=== PATIENT | female | born 1960 | race Caucasian/White ===

== ENCOUNTER 2021-09-23 13:53 | Outpatient (CLI) | payer OTHER, SELFPAY ==
[2021-09-23 16:10] LABS: Chloride* 103 mmol/L (96-114); Potassium* 4.5 mmol/L (3.6-5.1); Sodium* 138 mmol/L (135-149)
[2021-09-23 16:12] LABS: Creatinine* 0.9 mg/dL (0.5-1.5); Estimated Glomerular Filt Rate 73 ml/min
[2021-09-23 16:13] LABS: Blood Urea Nitrogen* 19 mg/dL (7-30); Calcium* 9.5 mg/dL (8.4-10.6); Carbon Dioxide* 28 mmol/L (20-32); Glucose* 103 mg/dL (60-115)
== END 2021-09-23 13:54 | disposition home or self-care (01) ==
LOC: NFLDREF 13:54
PROVIDERS: Nurse Practitioner Family; PCP Internal Medicine; Visit Provider Internal Medicine
DX: Z01.818 Encounter for other preprocedural examination (principal)
CPT/HCPCS: 80048

== ENCOUNTER 2021-09-24 06:57 | Outpatient (CLI) | payer OTHER, SELFPAY ==
--- NOTE | 2021-09-24 08:42 | W.ANESCHARGE ---
Anesthesia Charges Start Date/Time Anesthesia Start Date: 09/24/21 Anesthesia Start Time: 07:56 Stop Date/Time Anesthesia Stop Date: 09/24/21 Anesthesia Stop Time: 08:37 Summary Emergency: No
--- NOTE | 2021-09-24 09:30 | W.ANESCHARGE ---
Anesthesia Charges Start Date/Time Anesthesia Start Date: 09/24/21 Anesthesia Start Time: 07:56 Stop Date/Time Anesthesia Stop Date: 09/24/21 Anesthesia Stop Time: 08:37 Summary Emergency: No
== END 2021-09-24 06:58 | disposition home or self-care (01) ==
LOC: OP CLINIC 06:58
PROVIDERS: PCP Internal Medicine; Visit Provider Surgery
DX: Z12.11 Encounter for screening for malignant neoplasm of colon (principal); K63.5 Polyp of colon; K64.4 Residual hemorrhoidal skin tags; K57.30 Diverticulosis of large intestine without perforation or abscess without bleeding; D12.0 Benign neoplasm of cecum; Z86.010 Personal history of colon polyps
CPT/HCPCS: 00811; 00813; 45380; 45385; 88305; J2704

== ENCOUNTER 2022-11-04 19:02 | Outpatient (CLI) | payer OTHER, SELFPAY ==
--- NOTE | 2022-11-04 19:00 | CRLHL7_ITS ---
For Patients: As a result of the Century Cures Act, medical imaging exams and procedure reports are released immediately into your electronic medical record. You may view this report before your referring provider. If you have questions, please contact your health care provider. BILATERAL SCREENING MAMMOGRAM WITH COMPUTER-AIDED DETECTION AND TOMOSYNTHESIS TECHNIQUE: CC and MLO views were obtained. These mammographic images have been obtained using full-field digital technique. These mammographic images were interpreted with the benefit of computer-aided detection. Breast Tomosynthesis was used in this interpretation. COMPARISON FILM: 06/25/21, 10/18/19, 03/19/17. FINDINGS: There are scattered areas of fibroglandular density IMPRESSION: There is no radiographic evidence for malignancy. ASSESSMENT: BI-RADS Category 1: Negative RECOMMENDATION: Routine screening mammogram in 1 year. A lay language report of this examination will be provided to the patient. Mendoza Cope M.D. Diagnostic Radiologist [email or web address] KAT/Dictated by: Mendoza Cope MD @ 11/05/2022 10:41:00 AM (Electronically Signed)
== END 2022-11-04 19:03 | disposition home or self-care (01) ==
LOC: MAMMO 19:03
PROVIDERS: PCP Internal Medicine; Visit Provider Internal Medicine
DX: Z12.31 Encounter for screening mammogram for malignant neoplasm of breast (principal)
CPT/HCPCS: 77063; 77067

== ENCOUNTER 2023-11-09 13:09 | Outpatient (CLI) | payer OTHER, SELFPAY ==
--- OUTSIDE RECORDS SUMMARY | 2023-11-09 13:52 | XMS_ITS | Clinical Summary ---
Author Organization [facility] Address [place], [place] [address] Care Team Providers Care Economist Research Assistant Name Role Phone Luis Tolbert MD Primary Care Provider [phone] Allergies No known active allergies Medications Medication Sig Dispensed Refills Start Date End Date Status conjugated estrogens-medroxyPRO GESTERone, 0.625-2.5 mg, (PREMPRO) 0.625-2.5 mg per tabletIndications:Sy mptomatic menopausal or female climacteric states Take 1 tablet by mouth once daily. 90 tablet prn 05/31/2014 Active fluticasone (50 mcg per actuation) nasal solution (FLONASE)Indications :Allergic rhinitis, unspecified allergic rhinitis trigger, unspecified rhinitis seasonality INSTILL ONE SPRAY INTO BOTH NOSTRILS BY INTRANASAL ROUTE ONE TIME DAILY 48 mL 08/07/2016 Active Active Problems Problem Noted Date Diagnosed Date Personal history of colonic polyps 06/28/2012 Allergic rhinitis, cause unspecified 05/09/2011 Atypical moles 05/09/2011 Symptomatic menopausal or female climacteric sta enmanuel 05/09/2011 Immunizations Name Administration Dates Next Due Influenza, IIV3 (Age >=3 years) 11/08/2012,10/13 Influenza, IIV4 11/26/2014 Social History Tobacco Use Types Packs/Day Years Used Date Smoking Tobacco: Former Cigarettes Q uit: 05/08/2010 Smokeless Tobacco: Never Tobacco Cessation:Counseling Given: No Alcohol Use Standard Drinks/Week Comments Yes 0 (1 standard drink = 0.6 oz pur e alcohol) Sex and Gender Information Value Date Recorded Sex Assigned at Not on file Gender Identity Not on file Sexual Orientation Not on file Obstetrics History Last Filed Vital Signs Vital Sign Reading Time Taken Comments Blood Pressure 114/70 10/17/2014 11:43 AM CDT Pulse 84 10/17/2014 11:43 AM CDT Temperature 36.7 ??C (98.1 ??F) 01/06/2012 6:54 PM CS T Respiratory Rate 16 10/17/2014 11:43 AM CDT Oxygen Saturation - - Inhaled Oxygen Concentration - - Weight 88 kg (194 lb) 10/17/2014 11:43 AM CDT Height 158.5 cm (5' 2.4) 10/17/2014 11:43 AM CD T Body Mass Index 35.03 10/17/2014 11:43 AM CDT Plan of Treatment Health Maintenance Due Date Last Done Comments Tdap 11/17/1971 Depression screening for age 12+ 1972 HIV for age 15-65 11/17/1975 BMI (ht and wt on same day) for age 18+ 1978 Hepatitis C screening for age 18-79 1978 Tetanus booster 1980 Zoster (shingles) series for age 50+ (1 of 2) 2010 Mammogram for age 45-75 03/11/2014 03/11/2013, 02/22 Colonoscopy through age 75 06/28/2017 06/28/2012, Lipids for age 45-75 03/14/2018 03/14/2013, 02/12/19 13 Pap test for age 21-65 03/12/2020 8, 03/12/2017, 02/08/2014, Additional history exists COVID-19 vaccine series (2023- season) 2023 Influenza for age 50-64 10/11/2023 11/27/19 15, 11/08/2012, 10/14/2011 Pneumococcal series for age 6-64 Aged Out No longer eligible based on patient's age to complete this topic Procedures Procedure Name Priority Date/Time Associated Diagnosis Comments DIRECTOR REACTOR PROJECTS THIN PREP PAP SCREEN IMAGED Routine 03/12/2017 1:20 PM CORPORATE SCHEDULER LIPID PANEL W REFLEX MEASURED LDL Routine 03/14/2013 12:02 PM CORPORATE SCHEDULER Well adult exam COLONOSCOPY SCREENING Routine 06/28/2012 from Last 3 Months or Most Recently Relevant to Health Maintenance Results * DIRECTOR REACTOR PROJECTS THIN PREP PAP SCREEN IMAGED (03/12/2017 1:20 PM CORPORATE SCHEDULER) Case Report Gynecologic Cytology Report ? Case: [id number] ? Authorizing Provider: ??Jessica Can MD ?Collected: ? 03/12/2017 1320 ? First Screen: ?Omar Mendes ?Received: ?03/13/2017 1848 ? Specimen: ?DIRECTOR REACTOR PROJECTS ThinPrep Vial Screening, Cervical/Vaginal ? 03/18/2017 11:33 AM [facility] [employer] LABORATORY- ENTRAL LABORATORY INTERPRETATION/ RESULT NEGATIVE FOR INTRAEPITHELIAL LESION OR MALIGNANCY (NIL) (none) 03/18/2017 11:33 AM [facility] ENTRWY LABORATORY IMEN ADEQUACY Satisfactory for evaluation No endocervical component seen 03/18/2017 11:33 AM [facility] [employer] LABORATORYC ENTRAL LABORATORY HPV REQUEST HPV and PAP 03/18/2017 11:33 AM [facility] [employer] LABORATORY-C ENTRAL LABORATORY Automated Review Successful 03/18/2017 11:33 AM [facility] [employer] [facility] ENTRAL LABORATORY Comment:Specimen processed s uccessfully by automated yeast cake cutter device, ThinPrep Imaging System, [employer] ANCILLARY TESTING DIRECTOR REACTOR PROJECTS HPV Ordered, Please see separate report 03/18/2017 11:33 AM [facility] LABORATORY- ENTRAL LABORATORY Note The pap test is a screening technique, not a diagnostic procedure. ??It is used primarily to screen for squamous cancers and precursor lesions. ??Published studies have shown that it is subject to both false negative and false positive results. ??The pap test should not be used as the sole means to diagnose or exclude pre-malignant and malignant lesions. Interpreted at [facility] ([facility], [facility], [facility], [facility], [facility], [facility], [facility]) 03/18/2017 11:33 AM CORPORATE SCHEDULER [facility] LABORATORY-C ENTRAL LABORATORY Other (Cervical/Vagina l) 03/12/2017 1:20 PM CORPORATE SCHEDULER 03/13/2017 6:48 PM CORPORATE SCHEDULER Jessica Can MD PATHOLOGY/CYTOLOGY [facility] LABORAT[facility]-CENTRAL LABORATORY [address] [place] [address], * (ABNORMAL) LIPID PANEL W REFLEX MEASURED LDL (03/14/2013 12:02 PM CORPORATE SCHEDULER) CHOLESTEROL,TOTAL 194 100 - 199 mg/dL 03/14/2013 1:49 PM [facility] TRIGLYCERIDES 279(H) <150 mg/dL 03/14/2013 1:49 PM [facility] HDL CHOLESTEROL 61 >40 mg/dL 4 1:49 PM [facility] NON-HDL CHOLESTEROL 133 <145 mg/dl 03/14/2013 1:49 PM [facility] CHOL/HDL RATIO 3.18 <4.50 03/14/2013 1:49 PM [facility] LDL CHOLESTEROL 77 <=130 mg/dL 03/14/2013 1:49 PM [facility] PATIENT STATUS NON-FASTI NG 03/14/2013 1:49 PM [facility] Blood specimen (specimen) BLOOD SPECIMEN / Unknown Venipuncture / Unknown 03/14/2013 12:02 PM CORPORATE SCHEDULER 03/14/2013 12:02 PM CORPORATE SCHEDULER Luis Tolbert MD CHEMISTRY [facility] [address] [place] [address] * COLONOSCOPY SCREENING (06/28/2012) Luis Tolbert MD GI PROCEDURE ORD from Last 3 Months or Most Recently Relevant to Health Maintenance Care Teams Economist Research Assistant Relationship Specialty Start Date End Date Luis Tolbert MD PCP - General Family Practice 05/05/11
[2023-11-12 05:14] LABS: HPV Source Cervical; HPV, High Risk by TMA Not Detected
== END 2023-11-09 13:10 | disposition home or self-care (01) ==
PROVIDERS: PCP Internal Medicine; Visit Provider Internal Medicine
DX: Z12.4 Encounter for screening for malignant neoplasm of cervix (principal)
CPT/HCPCS: 87624; 87625; 88141; 88142